=== PATIENT | female | born 2000 | race Caucasian/White ===

== ENCOUNTER 2022-06-12 00:36 | Emergency (ER) | payer OTHER, SELFPAY ==
[2022-06-12 00:44] VITALS: BP 127/84; PULSE 98; RESP 18; TEMP 36.2; O2SAT 98; BMI 32.3
--- NOTE | 2022-06-12 00:50 | ED_ITS ---
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 Her pain is currently a 4-10. Associated symptoms: Deny abdominal pain, chills, dysuria, fever(s), nausea or vomiting Review of Systems Const: Denies: fever(s), chills, body aches or change in appetite Eyes: Denies: blurry vision or eye discomfort ENMT: Denies: throat pain or dental pain Card: Denies: chest pain Resp: Denies: dyspnea GI: Denies: abdominal pain, nausea, vomiting or diarrhea : Denies: dysuria Musc: Reports: back pain Skin/Breast: Denies: rash Neuro: Denies: headache(s) Psych: Denies: depression Joseph/Lymph: Denies: easy bruising All/Imm: Denies: urticaria PFSH ED PFSH: Medical History (Updated 06/12/22 @ 01:03 by Jeffy Carrera MD) No pertinent past medical history Social History (Updated 06/12/22 @ 01:03 by Jeffy Carrera MD) Substance/Drug Use: never Female Reproductive History: Date of last menstrual period: 05/21/22 Physical Exam Const: COMMON NORMALS: no acute distress, patient oriented x3 and healthy appearing HENMT: COMMON NORMALS: normocephalic and atraumatic HEAD & SCALP: normocephalic and atraumatic Eye: COMMON NORMALS: conjunctivae normal CONJUNCTIVA: Yes conjunctivae normal Neck/C-Spine: COMMON NORMALS: full ROM and supple Chest: COMMONS NORMALS: normal inspection of the chest and normal palpation of entire chest wall Resp: COMMON NORMALS: normal respiratory effort, No retractions, No use of accessory muscles and clear to auscultation bilaterally AUSCULTATION: clear to auscultation bilaterally Cardio: COMMON NORMALS: regular rate, regular rhythm and No murmurs present (Cardio) RATE: regular rate RHYTHM: regular rhythm GI: COMMON NORMALS: Normal to inspection, nondistended, normoactive bowel sounds present, Soft to palpation, non-tender and no masses PALPATION: Yes Soft to palpation Back/Pelvis: OTHER: Tenderness along right mid back no midline tenderness Extremity: COMMON NORMALS: normal to inspection and full ROM Neuro: COMMON NORMALS: patient oriented x3, moves all extremities and no focal motor deficits Psych: COMMON NORMALS: mental status grossly normal, Normal thought process present and cooperative THOUGHT PROCESS: Normal thought process present Skin: COMMON NORMALS: no rashes or lesions noted and no wounds GENERAL SKIN EXAM: no rashes or lesions noted Course Vital Signs: Vital signs: Vital Signs Temperature 97.1 F L 06/12/22 00:44 Pulse Rate 98 06/12/22 00:44 Respiratory Rate 18 06/12/22 00:44 Blood Pressure 127/84 06/12/22 00:44 Pulse Oximetry 98 06/12/22 00:44 Oxygen Delivery Me thod 06/12/22 00:44 MDM - Back Pain/Injury Medical Decision Making Patient presents with a thoracic back strain no signs of any major injuries likely muscular in nature will place on Naprosyn Robaxin she is stable for discharge. Discharge Plan Discharge Patient Disposition: Home Clinical Impression: Thoracic back pain Condition: Stable Prescriptions: New methocarbamol 750 mg tablet 750 mg PO Q6H PRN (Reason: spasms) Qty: 20 0RF naproxen [Naprosyn] 500 mg tablet 500 mg PO BID PRN (Reason: pain) Qty: 20 0RF No Action cyclobenzaprine 5 mg tablet 5 mg PO TID PRN (Reason: muscle spasm) Qty: 30 0RF Discharge Orders: Discharge ED (Routine); Ordered 06/12/22 Ordered By: Jeffy Carrera Referrals: [facility], [Primary Care Provider] - Discharge Diet: Advance as tolerated Discharge Activity: Resume usual activity Patient Instructions: Thoracic Back Strain (ED) Coding Level of Care Code ED Wafer Fabrication Technician for Padmini Cantu
[2022-06-12] MEDS: naproxen 500 mg Tablet PO (01:02)
== END 2022-06-12 02:00 | disposition home or self-care (01) ==
PROVIDERS: Emergency Provider Emergency Medicine
DX: M54.6 Pain in thoracic spine (principal)
CPT/HCPCS: 99283

== ENCOUNTER → 2022-09-27 11:37 | Outpatient (BNVA) | payer SELFPAY | PROVIDERS: Visit Provider Emergency Medicine | DX: N39.0 Urinary tract infection, site not specified (principal) | CPT/HCPCS: 81000 ==

== ENCOUNTER → 2023-05-16 15:20 | Outpatient (BNVA) | payer SELFPAY | PROVIDERS: PCP Family Medicine; Referring Provider Family Medicine; Visit Provider Nurse Practitioner Women's Health | DX: Z30.430 Encounter for insertion of intrauterine contraceptive device (principal) | CPT/HCPCS: 81025 ==

== ENCOUNTER → 2023-06-27 14:30 | Outpatient (BNVA) | payer OTHER, SELFPAY | PROVIDERS: PCP Family Medicine; Visit Provider Nurse Practitioner Women's Health | DX: Z12.4 Encounter for screening for malignant neoplasm of cervix (principal); N89.8 Other specified noninflammatory disorders of vagina | CPT/HCPCS: 88175 ==

== ENCOUNTER → 2023-11-09 10:32 | Outpatient (BNVA) | payer OTHER, SELFPAY | PROVIDERS: PCP Family Medicine; Visit Provider Family Medicine | DX: F32.A Depression, unspecified (principal); M54.50 Low back pain, unspecified; G89.29 Other chronic pain; F33.1 Major depressive disorder, recurrent, moderate | CPT/HCPCS: 87491; 87591 ==

== ENCOUNTER 2024-03-20 22:55 | Emergency (ER) | payer OTHER, SELFPAY ==
[2024-03-20 23:06] VITALS: BP 112/77; PULSE 129; RESP 16; TEMP 36.4; O2SAT 100
--- NOTE | 2024-03-21 00:09 | ED_ITS ---
Documented by User: NGA Schaffer 03/21/24 10:51 HPI - Female Genitourinary 2 General: Chief complaint: Vaginal Bleeding Stated complaint: severe bleeding, lightheaded Time Seen by Provider: 03/21/24 00:08 Source: patient Mode of arrival: ambulatory Limitations: no limitations History of Present Illness: Patient is a nice 24-year-old female presents to ED today with complaint of heavy vaginal bleeding. Patient states she has a copper IUD and states ever since its insertion she has had somewhat sporadic and irregular bleeding. She states yesterday she began bleeding and states it significantly worsened overnight and into today. She states she is soaking a pad an hour. She states she is passing clots the size of her palms. Patient states later this evening she began feeling lightheaded and dizzy thus prompting her evaluation to the emergency department. MD elicited complaint: vaginal bleeding Onset (ago): hour(s) Severity: moderate Quality of pain: cramping Vaginal discharge: none Vaginal bleeding: heavy and POC/tissue Exacerbating factors: none Relieving factors: none Associated symptoms: Deny abdominal pain, headache(s), nausea or vaginal discharge Treatment prior to arrival: none Patient : No Review of Systems 2 Const: Denies: fever(s), chills, body aches, fatigue or malaise Card: Denies: chest pain Resp: Denies: dyspnea GI: Denies: abdominal pain, nausea, vomiting or diarrhea : Reports: vaginal bleeding, irregular period, metrorrhagia and pelvic pain (cramping); Denies: flank pain, difficulty voiding, dysuria, urinary frequency, urinary urgency, urinary hesitancy, vaginal odor or vaginal discharge Neuro: Reports: dizziness; Denies: headache(s), numbness in extremities, weakness in extremities or sensory changes PFSH ED 2 PFSH: Medical History No pertinent past medical history neghx:htn,dm,thyroid,dvt/pe PCP: Jose Surgical History No pertinent past surgical history Family History Grandmother Diabetes Hypertension Grandfather CAD (coronary artery disease) Denies family history of Cancer Physical Exam 2 Const: COMMON NORMALS: no acute distress, patient oriented x3, no limitations, alert and well nourished GENERAL APPEARANCE: cooperative O RIENTATION/CONSCIOUSNESS: Yes awake, Yes oriented to person, Yes oriented to place and Yes oriented to time Eye: GENERAL EYE: appearance normal, both eyes and all related structures Resp: COMMON NORMALS: normal respiratory effort and clear to auscultation bilaterally AUSCULTATION: clear to auscultation bilaterally Cardio: COMMON NORMALS: regular rhythm RATE: tachycardic RHYTHM: regular rhythm GI: COMMON NORMALS: Normal to inspection, nondistended, normoactive bowel sounds present, Soft to palpation and non-tender PALPATION: Yes Soft to palpation : COMMON NORMALS: Yes no CVA tenderness BLADDER/KIDNEY EXAM: Yes no CVA tenderness EXTERNAL FEMALE EXAM: Yes normal appearance of the urethra S PECULUM EXAM - VAGINA: Yes other (several clots within vaginal canal ) S PECULUM EXAM - CERVIX: Yes Other cervical findings present (cervix appeared friable; bleeding from cervical os) Back/Pelvis: COMMON NORMALS: no CVA tenderness Extremity: GENERAL: Yes normal exam except as noted Neuro: COMMON NORMALS: patient oriented x3 SENSORIUM/ORIENTATION: Yes alert, Yes oriented to person, Yes oriented to place and Yes oriented to time Course 2 ED course: Care transferred to Dr. Norton at shift change. Plan is for fluids and repeat H/H in a few hours as we have no baseline comparison. Hemoglobin is at 11.2 currently. She is tachycardic. US currently in room with patient. Cervix did appear friable on exam. Did collect chlamydia/gonorrhea/wet prep and those pending as well. Please see Dr. Norton's note for disposition. ES Vital Signs: Vital signs: Vital Signs Temperature 97.6 F 03/20/24 23:06 Pulse Rate 110 H 03/21/24 04:24 Respiratory Rate 15 03/21/24 01:00 Blood Pressure 120/80 03/21/24 04:24 Pulse Oximetry 98 03/21/24 04:24 Oxygen Delivery Me thod Room Air 03/21/24 02:44 MDM - Female Medical Decision Making Patient care transferred over to myself after the level shift ended. We repeated patient's hemoglobin, dropped from 11.2-9.7 for a drop of 1.5 however some of this may be dilutional. Patient is feeling better. Patient also sees the women's health nurse at the women's clinic. Patient will be calling them later today to arrange quick follow-up. It was discussed with the patient that at this point she does not need a transfusion however if she is she keeps losing at this rate within several days she may need 1. It was also discussed she may end up being put on hormonal type control to control the bleeding. Patient understands I contacted patient the following morning for a courtesy check to see how she was feeling. She told me she continued bleeding heavily throughout the evening. She does not feel like her lightheadedness or dizziness is worsening. She did contact the [facility] women's health clinic however they do not have any providers in office today and told her she could not be seen or have labs redrawn until Sunday. I wrote her for an outpatient repeat H&H she was able to come to the hospital and complete this. Her hemoglobin upon discharge yesterday evening/early this morning was 9.7. It is 9.6 on redraw which is reassuring. I did speak to supervisor bonding, Dr. Chen and ran case by him. He recommended placing her on Pirmella oral contraception to help with the bleeding. This was called into [facility] pharmacy. I contacted patient again and told her plan. Dr. Chen will be reaching out to her on Sunday for another recheck and plans on seeing her in the office on Sunday. Strict return to precautions given going into the weekend about worsening bleeding. ES Lab Data 03/21/24 02:55 03/20/24 00:23 Radiology Impressions Transvaginal US 03/21/24 00:41 IMPRESSION: 1. No acute findings. 2. Large left ovarian cystic lesion with internal echogenic material and septations. Interval follow-up with pelvic ultrasound and/or contrast enhanced pelvic MRI should be considered. Laboratory Results WBC 10.78 10^3/uL (3.29-11.43) 03/20/24 00:23 RBC 4.61 10^6/uL (3.85-5.65) 03/20/24 00:23 Hgb 9.70 g/dL (11.27-16.99) L 03/21/24 02:55 Hct 31.3 % (36-47) L 03/21/24 02:55 MCV 78.5 fl (85-98) L 03/20/24 00:23 MCH 24.3 pg (27-33) L 03/20/24 00:23 MCHC 30.9 g/dL (30-55) 03/20/24 00:23 RDW 15.9 % (12.1-15.1) H 03/20/24 00:23 Plt Count 467 10^3/cmm (157-399) H 03/20/24 00:23 MPV 9.1 fL (7.4-10.4) 03/20/24 00:23 Neut % (Auto) 68.0 % 03/20/24 00:23 Lymph % (Auto) 21.2 % 03/20/24 00:23 Coffee % (Auto) 5.6 % 03/20/24 00:23 Eos % (Auto) 4.1 % 03/20/24 00:23 Baso % (Auto) 0.7 % 03/20/24 00:23 Neut # (Auto) 7.34 10^3/uL (1.8-7.7) 03/20/24 00:23 Lymph # (Auto) 2.3 10^3/uL (0.8-4.8) 03/20/24 00:23 Coffee # (Auto) 0.6 10^3/uL (0.2-0.9) 03/20/24 00:23 Eos # (Auto) 0.4 10^3/uL (0.0-0.8) 03/20/24 00:23 Baso # (Auto) 0.1 10^3/uL (0.0-0.1) 03/20/24 00:23 Nucleated RBC % (auto) 0 % 03/20/24 00:23 Nucleated RBCs # 0.0 /100WBC 03/20/24 00:23 PT 14.10 SECONDS (12.1-14.9) 03/21/24 00:50 INR 1.06 (0.8-1.2) 03/21/24 00:50 Sodium 133 mmol/L (136-145) L 03/20/24 00:23 Potassium 4.3 mmol/L (3.5-5.1) 03/20/24 00:23 Chloride 99 mmol/L (98-107) 03/20/24 00:23 Carbon Dioxide 22 mmol/L (22-29) 03/20/24 00:23 Anion Gap 16.3 (5-19) 03/20/24 00:23 BUN 7 mg/dL (6-20) 03/20/24 00:23 Creatinine 0.7 mg/dL (0.5-0.9) 03/20/24 00:23 GFR Calculation 102.0 mL/min (90-130) 03/20/24 00:23 Glucose 106 mg/dL (65-115) 03/20/24 00:23 Calculated Osmolality 274 mOsm/kg (285-295) L 03/20/24 00:23 Calcium 9.1 mg/dL (8.5-10.5) 03/20/24 00:23 Total Bilirubin 0.3 mg/dL (0.15-1.2) 03/20/24 00:23 AST 18 U/L (0-32) 03/20/24 00:23 ALT 15 U/L (0-33) 03/20/24 00:23 Alkaline Phosphatase 72 U/L (35-105) 03/20/24 00:23 Total Protein 7.7 g/dL (6.6-8.7) 03/20/24 00:23 Albumin 3.9 g/dL (3.5-5.2) 03/20/24 00:23 Globulin 3.8 g/dL (1.3-4.6) 03/20/24 00:23 HCG, Qual Negative (Negative) 03/21/24 00:23 Discharge Plan Discharge Patient Disposition: Home Clinical Impression: Vaginal bleeding Condition: Stable Prescriptions: No Action povidone-iodine [Betadine Swabsticks] 10 % swab 1 applic topical ONCE Qty: 1 0RF fexofenadine [Heather Allergy] 180 mg tablet 180 mg PO DAILY ParaGard T 380A 380 square mm intrauterine device intrauterine montelukast [Singulair] 10 mg tablet 10 mg PO DAILY Qty: 90 1RF citalopram 10 mg tablet See Rx Instructions .ROUTE .COMPLEX Qty: 90 1RF Dose Instruction: TAKE 1 TABLET BY MOUTH EVERY DAY Rx Instructions: TAKE 1 TABLET BY MOUTH EVERY DAY tizanidine 4 mg tablet 4 mg PO .qhs PRN (Reason: muscle spasticity) Qty: 30 1RF doxycycline hyclate 100 mg tablet 100 mg PO BID 7 Days Qty: 14 0RF prednisone 20 mg tablet 20 mg PO BID 5 Days Qty: 10 0RF albuterol sulfate 90 mcg/actuation HFA aerosol inhaler 2 puff inhalation QID PRN (Reason: shortness of breath or wheezing) Qty: 8.5 2RF Discharge Orders: Discharge ED (Routine); Ordered 03/21/24 Ordered By: Andrea Norton Referrals: Shilpa Garcia DO [Primary Care Provider] - 1 week Patient Instructions: Abnormal (Dysfunctional) Uterine Bleeding (ED) Activity Restrictions/Additional Instructions: Your evaluation in ER showed your initial hemoglobin was proximal 11.2, after 1 L saline and approximately 5 hours in the ER your hemoglobin did drop to 9.7, part of this will be dilutional anemia secondary to the fluid part of this will be actual blood loss. Please call the women's health clinic later on this morning to arrange follow-up. They may treat you with abdominal type medication to Control your bleeding. At this time you do not need a transfusion however if you keep bleeding this heavy within a very short time you may. If you have worsening lightheaded dizziness fatigue felt you are in a pass out and a fast heart rate please feel free to return to the ER for further evaluation. Coding Level of Care Code ED Child Care Group Leader for Chg Fwd Documented by User: Andrea Norton DO 03/21/24 05:49 HPI - Female Genitourinary 2 General: Chief complaint: Vaginal Bleeding Stated complaint: severe bleeding, lightheaded Time Seen by Provider: 03/21/24 00:08 [facility] ED 2 PFSH: Medical History No pertinent past medical history neghx:htn,dm,thyroid,dvt/pe PCP: Jose Surgical History No pertinent past surgical history Family History Grandmother Diabetes Hypertension Grandfather CAD (coronary artery disease) Denies family history of Cancer Course 2 Vital Signs: Vital signs: Vital Signs Temperature 97.6 F 03/20/24 23:06 Pulse Rate 110 H 03/21/24 04:24 Respiratory Rate 15 03/21/24 01:00 Blood Pressure 120/80 03/21/24 04:24 Pulse Oximetry 98 03/21/24 04:24 Oxygen Delivery Me thod Room Air 03/21/24 02:44 MDM - Female Medical Decision Making Patient care transferred over to myself after the level shift ended. We repeated patient's hemoglobin, dropped from 11.2-9.7 for a drop of 1.5 however some of this may be dilutional. Patient is feeling better. Patient also sees the women's health nurse at the women's clinic. Patient will be calling them later today to arrange quick follow-up. It was discussed with the patient that at this point she does not need a transfusion however if she is she keeps losing at this rate within several days she may need 1. It was also discussed she may end up being put on hormonal type control to control the bleeding. Patient understands Lab Data 03/21/24 02:55 03/20/24 00:23 Radiology Impressions Transvaginal US 03/21/24 00:41 IMPRESSION: 1. No acute findings. 2. Large left ovarian cystic lesion with internal echogenic material and septations. Interval follow-up with pelvic ultrasound and/or contrast enhanced pelvic MRI should be considered. Laboratory Results WBC 10.78 10^3/uL (3.29-11.43) 03/20/24 00:23 RBC 4.61 10^6/uL (3.85-5.65) 03/20/24 00:23 Hgb 9.70 g/dL (11.27-16.99) L 03/21/24 02:55 Hct 31.3 % (36-47) L 03/21/24 02:55 MCV 78.5 fl (85-98) L 03/20/24 00:23 MCH 24.3 pg (27-33) L 03/20/24 00:23 MCHC 30.9 g/dL (30-55) 03/20/24 00:23 RDW 15.9 % (12.1-15.1) H 03/20/24 00:23 Plt Count 467 10^3/cmm (157-399) H 03/20/24 00:23 MPV 9.1 fL (7.4-10.4) 03/20/24 00:23 Neut % (Auto) 68.0 % 03/20/24 00:23 Lymph % (Auto) 21.2 % 03/20/24 00:23 Coffee % (Auto) 5.6 % 03/20/24 00:23 Eos % (Auto) 4.1 % 03/20/24 00:23 Baso % (Auto) 0.7 % 03/20/24 00:23 Neut # (Auto) 7.34 10^3/uL (1.8-7.7) 03/20/24 00:23 Lymph # (Auto) 2.3 10^3/uL (0.8-4.8) 03/20/24 00:23 Coffee # (Auto) 0.6 10^3/uL (0.2-0.9) 03/20/24 00:23 Eos # (Auto) 0.4 10^3/uL (0.0-0.8) 03/20/24 00:23 Baso # (Auto) 0.1 10^3/uL (0.0-0.1) 03/20/24 00:23 Nucleated RBC % (auto) 0 % 03/20/24 00:23 Nucleated RBCs # 0.0 /100WBC 03/20/24 00:23 PT 14.10 SECONDS (12.1-14.9) 03/21/24 00:50 INR 1.06 (0.8-1.2) 03/21/24 00:50 Sodium 133 mmol/L (136-145) L 03/20/24 00:23 Potassium 4.3 mmol/L (3.5-5.1) 03/20/24 00:23 Chloride 99 mmol/L (98-107) 03/20/24 00:23 Carbon Dioxide 22 mmol/L (22-29) 03/20/24 00:23 Anion Gap 16.3 (5-19) 03/20/24 00:23 BUN 7 mg/dL (6-20) 03/20/24 00:23 Creatinine 0.7 mg/dL (0.5-0.9) 03/20/24 00:23 GFR Calculation 102.0 mL/min (90-130) 03/20/24 00:23 Glucose 106 mg/dL (65-115) 03/20/24 00:23 Calculated Osmolality 274 mOsm/kg (285-295) L 03/20/24 00:23 Calcium 9.1 mg/dL (8.5-10.5) 03/20/24 00:23 Total Bilirubin 0.3 mg/dL (0.15-1.2) 03/20/24 00:23 AST 18 U/L (0-32) 03/20/24 00:23 ALT 15 U/L (0-33) 03/20/24 00:23 Alkaline Phosphatase 72 U/L (35-105) 03/20/24 00:23 Total Protein 7.7 g/dL (6.6-8.7) 03/20/24 00:23 Albumin 3.9 g/dL (3.5-5.2) 03/20/24 00:23 Globulin 3.8 g/dL (1.3-4.6) 03/20/24 00:23 HCG, Qual Negative (Negative) 03/21/24 00:23 All radiology interpretation(s) finalized by discharge Discharge Plan Discharge Patient Disposition: Home Clinical Impression: Vaginal bleeding Condition: Stable Prescriptions: No Action povidone-iodine [Betadine Swabsticks] 10 % swab 1 applic topical ONCE Qty: 1 0RF fexofenadine [Heather Allergy] 180 mg tablet 180 mg PO DAILY ParaGard T 380A 380 square mm intrauterine device intrauterine montelukast [Singulair] 10 mg tablet 10 mg PO DAILY Qty: 90 1RF citalopram 10 mg tablet See Rx Instructions .ROUTE .COMPLEX Qty: 90 1RF Dose Instruction: TAKE 1 TABLET BY MOUTH EVERY DAY Rx Instructions: TAKE 1 TABLET BY MOUTH EVERY DAY tizanidine 4 mg tablet 4 mg PO .qhs PRN (Reason: muscle spasticity) Qty: 30 1RF doxycycline hyclate 100 mg tablet 100 mg PO BID 7 Days Qty: 14 0RF prednisone 20 mg tablet 20 mg PO BID 5 Days Qty: 10 0RF albuterol sulfate 90 mcg/actuation HFA aerosol inhaler 2 puff inhalation QID PRN (Reason: shortness of breath or wheezing) Qty: 8.5 2RF Discharge Orders: Discharge ED (Routine); Ordered 03/21/24 Ordered By: Andrea Norton Referrals: Shilpa Garcia DO [Primary Care Provider] - 1 week Patient Instructions: Abnormal (Dysfunctional) Uterine Bleeding (ED) Activity Restrictions/Additional Instructions: Your evaluation in ER showed your initial hemoglobin was proximal 11.2, after 1 L saline and approximately 5 hours in the ER your hemoglobin did drop to 9.7, part of this will be dilutional anemia secondary to the fluid part of this will be actual blood loss. Please call the women's health clinic later on this morning to arrange follow-up. They may treat you with abdominal type medication to Control your bleeding. At this time you do not need a transfusion however if you keep bleeding this heavy within a very short time you may. If you have worsening lightheaded dizziness fatigue felt you are in a pass out and a fast heart rate please feel free to return to the ER for further evaluation. Coding Level of Care Code ED Child Care Group Leader for Padmini Cantu
[2024-03-21 00:30] LABS: Basophils # 0.1 10^3/uL (0.0-0.1); Basophils % 0.7 %; Eosinophils # 0.4 10^3/uL (0.0-0.8); Eosinophils % 4.1 %; Hematocrit 36.2 % (36-47); Lymphocytes # 2.3 10^3/uL (0.8-4.8); Lymphocytes % 21.2 %; Mean Corpuscular HGB Conc 30.9 g/dL (30-55); Mean Corpuscular Hemoglobin 24.3 pg (27-33); Mean Corpuscular Volume 78.5 fl (85-98); Mean Platelet Volume 9.1 fL (7.4-10.4); Monocytes # 0.6 10^3/uL (0.2-0.9); Monocytes % 5.6 %; Neutrophils # 7.34 10^3/uL (1.8-7.7); Nucleated Red Blood Cells % 0 %; Platelet Count 467 10^3/cmm (157-399); Red Blood Count 4.61 10^6/uL (3.85-5.65); Red Cell Distribution Width 15.9 % (12.1-15.1); White Blood Count 10.78 10^3/uL (3.29-11.43)
[2024-03-21 00:37] LABS: HCG, Serum Qual Negative (Negative)
--- NOTE | 2024-03-21 00:41 | USR_ITS ---
PROCEDURE INFORMATION: Exam: US Pelvis, Transvaginal, Non-Obstetric Exam date and time: 03/21/2024 1:05 AM Age: 24 years old Clinical indication: Menstruation abnormalities; Excessive menstruation; With regular cycle; Additional info: Heavy vaginal bleeding TECHNIQUE: Imaging protocol: Real-time transvaginal pelvic (non-obstetric) ultrasound with image documentation. Transvaginal imaging was used for better evaluation of the endometrium, adnexa, and/or cervix. COMPARISON: No relevant prior studies available. FINDINGS: Uterus: Uterus is normal. Endometrial stripe is normal, measuring 1.1 cm in thickness. An intrauterine device is in place. Right ovary/adnexa: Normal. No mass. Normal ovarian blood flow on color Doppler. 1.7 cm cyst noted. Left ovary/adnexa: Normal. No mass. Normal ovarian blood flow on color Doppler. Large cystic lesion with internal echogenic material and septations noted, measuring 7 x 8 cm. Urinary bladder: Urinary bladder is limited. Intraperitoneal space: No free fluid. US/US transvaginal [id number] IMPRESSION: 1. No acute findings. 2. Large left ovarian cystic lesion with internal echogenic material and septations. Interval follow-up with pelvic ultrasound and/or contrast enhanced pelvic MRI should be considered.
[2024-03-21 00:45] LABS: Alanine Aminotransferase 15 U/L (0-33); Albumin Level 3.9 g/dL (3.5-5.2); Alkaline Phosphatase 72 U/L (35-105); Blood Urea Nitrogen 7 mg/dL (6-20); Calcium 9.1 mg/dL (8.5-10.5); Carbon Dioxide 22 mmol/L (22-29); Chloride 99 mmol/L (98-107); Creatinine Clr Calc Pharmacy 145.3682; Globulin 3.8 g/dL (1.3-4.6); Glucose 106 mg/dL (65-115); Osmolality Calculated 274 mOsm/kg (285-295); Sodium 133 mmol/L (136-145); Total Bilirubin 0.3 mg/dL (0.15-1.2); Total Protein 7.7 g/dL (6.6-8.7)
[2024-03-21 00:46] LABS: Anion Gap 16.3 (5-19); Aspartate Amino Transferase 18 U/L (0-32); Potassium 4.3 mmol/L (3.5-5.1)
[2024-03-21 00:50] VITALS: BP 120/82; BP 123/96; BP 124/81; PULSE 121; PULSE 123; PULSE 140
[2024-03-21 01:00] VITALS: BP 124/81; PULSE 132; RESP 15; O2SAT 95
[2024-03-21] MEDS: sodium chloride 0.9% 1,000 ML 999 ML IV (01:02)
[2024-03-21 01:14] LABS: INR 1.06 (0.8-1.2)
[2024-03-21 02:44] VITALS: PULSE 110; O2SAT 96
[2024-03-21 02:58] LABS: Hematocrit 31.3 % (36-47)
[2024-03-21 04:24] VITALS: BP 120/80; PULSE 110; O2SAT 98
[2024-03-22 13:09] LABS: Trichomonas Vaginalis RNA NOT DETECTED (NOT DETECTED)
[2024-03-22 14:20] LABS: Chlamydia Trachomatis RNA TMA NOT DETECTED (NOT DETECTED); Neisseria Gonorrhoeae RNA, TMA NOT DETECTED (NOT DETECTED)
== END 2024-03-21 04:25 | disposition home or self-care (01) ==
PROVIDERS: Emergency Medicine; Emergency Provider Physician Assistant; PCP Family Medicine
DX: N93.9 Abnormal uterine and vaginal bleeding, unspecified (principal); Z79.899 Other long term (current) drug therapy; Z97.5 Presence of (intrauterine) contraceptive device
CPT/HCPCS: 76830; 80053; 84703; 85014; 85018; 85025; 85610; 87210; 87491; 87591; 96360; 96361; 99285; J7030

== ENCOUNTER 2024-03-21 10:10 | Outpatient (CLI) | payer OTHER, SELFPAY ==
[2024-03-21 10:30] LABS: Hematocrit 30.9 % (36-47)
== END 2024-03-21 10:11 | disposition home or self-care (01) ==
PROVIDERS: PCP Family Medicine; Visit Provider Physician Assistant
DX: N93.9 Abnormal uterine and vaginal bleeding, unspecified (principal)
CPT/HCPCS: 36415; 85014; 85018

== ENCOUNTER 2024-03-22 22:57 | Emergency (ER) | payer OTHER, SELFPAY ==
[2024-03-22 23:02] VITALS: BP 109/78; PULSE 129; RESP 17; TEMP 36.7; O2SAT 98; BMI 34.0
[2024-03-22 23:44] LABS: Basophils # 0.1 10^3/uL (0.0-0.1); Basophils % 0.5 %; Eosinophils # 0.6 10^3/uL (0.0-0.8); Eosinophils % 5.3 %; Hematocrit 23.5 % (36-47); Lymphocytes # 1.9 10^3/uL (0.8-4.8); Mean Corpuscular HGB Conc 31.1 g/dL (30-55); Mean Corpuscular Hemoglobin 24.6 pg (27-33); Mean Corpuscular Volume 79.1 fl (85-98); Mean Platelet Volume 9.3 fL (7.4-10.4); Monocytes # 0.6 10^3/uL (0.2-0.9); Monocytes % 4.9 %; Neutrophils # 8.53 10^3/uL (1.8-7.7); Neutrophils % 72.9 %; Nucleated Red Blood Cells % 0 %; Platelet Count 431 10^3/cmm (157-399); Red Blood Count 2.97 10^6/uL (3.85-5.65); Red Cell Distribution Width 15.9 % (12.1-15.1)
[2024-03-22 23:54] VITALS: BP 132/76; PULSE 116; RESP 18; O2SAT 99
[2024-03-23] VITALS (14 sets, daily range): BP systolic 114–154; BP diastolic 63–99; PULSE 66–119; RESP 14–18; TEMP 36.4–36.9; O2SAT 98–100
[2024-03-23 00:02] LABS: HCG, Serum Qual Negative (Negative)
[2024-03-23 00:06] LABS: Alanine Aminotransferase 9 U/L (0-33); Albumin Level 3.5 g/dL (3.5-5.2); Alkaline Phosphatase 62 U/L (35-105); Anion Gap 12.1 (5-19); Aspartate Amino Transferase 11 U/L (0-32); Blood Urea Nitrogen 11 mg/dL (6-20); Calcium 7.9 mg/dL (8.5-10.5); Carbon Dioxide 25 mmol/L (22-29); Chloride 105 mmol/L (98-107); Creatinine Clr Calc Pharmacy 148.0447; Glucose 124 mg/dL (65-115); Osmolality Calculated 287 mOsm/kg (285-295); Potassium 4.1 mmol/L (3.5-5.1); Sodium 138 mmol/L (136-145); Total Bilirubin 0.2 mg/dL (0.15-1.2); Total Protein 6.5 g/dL (6.6-8.7)
[2024-03-23] MEDS: sodium chloride 0.9% 1,000 ML 999 ML IV (00:06)
[2024-03-23] MEDS: acetaminophen 325 mg Tablet 650 MG PO (00:55)
[2024-03-23] MEDS: diphenhydrAMINE 50 mg/mL SDV 1mL 25 MG IVP (00:56)
[2024-03-23] MEDS: sodium chloride 0.9% 100 mL Bag 50 ML IV ×2 (01:15→03:48)
--- NOTE | 2024-03-23 01:20 | PM.OBGYCN ---
Providers/Reason for Consult Consulting Physican/Specialty*: Jamil Chen MD, ob-in flight crew member Reason for Consult*: heavy bleeding with paragard IUD Primary CLUB ROOM ATTENDANT: Shilpa Olguin NP Primary Care Provider: Shilpa Garcia DO CLUB ROOM ATTENDANT Consult HPI History of Present Illness Criss Ann is a 24 year old female s/p paragard IUD placement May 16, 2024 had regular periods after placement then on March 20, 2024, began to have very heavy bleeding with large clots was seen in ER March 20, 2024 had negative test normal pelvic sono with IUD in position Hgb was 11.2 Patient was seen again on March 21, 2024 with continued very heavy bleeding Hgb on March 21 was 9.6 Patient was started on Pirmella Patient took one dose of Pirmella Re-presents to ER today, March 22, with continued bleeding, large clots, dizziness, and Weakness Hgb today is 7.3 Medications/Allergies Home Medications Medication Instructions Recorded Confirmed Last Taken Type montelukast 10 mg tablet 10 mg PO DAILY #90 tabs 04/20/23 02/24/24 Unknown Rx (Singulair) fexofenadine 180 mg tablet 180 mg PO DAILY 05/16/23 02/24/24 Unknown History (Heather Allergy) copper 380 square mm intrauterine intrauterine 06/27/23 02/24/24 Unknown History device (ParaGard T 380A) citalopram 10 mg tablet See Rx Instructions .Route 11/09/23 02/24/24 Unknown Rx .COMPLEX #90 tabs tizanidine 4 mg tablet 4 mg PO .qhs PRN muscle spasticity 11/09/23 02/24/24 Unknown Rx #30 tabs albuterol sulfate 90 mcg/actuation 2 puff inhalation QID PRN 02/24/24 02/24/24 Unknown Rx aerosol inhaler shortness of breath or wheezing #8.5 grams doxycycline hyclate 100 mg tablet 100 mg PO BID 7 days #14 tabs 02/24/24 02/24/24 Unknown Rx prednisone 20 mg tablet 20 mg PO BID 5 days #10 tabs 02/24/24 02/24/24 Unknown Rx Allergies Allergy/AdvReac Type Severity Reaction Status Date / Time No Known Allergies Allergy Verified 03/22/24 23:07 PFS CLUB ROOM ATTENDANT PFSH: Medical History No pertinent past medical history neghx:htn,dm,thyroid,dvt/pe PCP: Jose Surgical History No pertinent past surgical history Family History Grandmother Diabetes Hypertension Grandfather CAD (coronary artery disease) Denies family history of Cancer Vitals/I&O/Wt Last Vital Signs Temp 98.5 F 03/23/24 02:39 Pulse 116 H 03/23/24 02:39 Resp 16 03/23/24 02:39 BP 154/98 03/23/24 02:39 Pulse Ox 100 03/23/24 02:39 O2 Del Method Room Air 03/22/24 23:02 03/22/24 03/22/24 03/23/24 14:59 22:59 06:59 Intake Total 1250 / 1250 Balance 1250 / 1250 Weight last 48 hrs Weight 217 lb Physical Exam Narrative: I reviewed patient?s history, chart, and lab results Discussed with patient my recommendation to remove the paragard IUD Patient understands and wants to proceed with IUD removal Exam: Vulva: normal Vagina: + blood in vault Cervix: IUD string in good position IUD was removed complete and intact, discarded Data 03/22/24 23:20 03/22/24 23:20 A&P Assessment and plan (1) IUD surveillance: Heavy uterine bleeding, likely secondary to presence of paragard IUD Paragard IUD removed today Plan continue Pirmella as previously instructed for remainder of pack Plan followup in in flight crew member clinic Sunday or Sunday (2) Vaginal bleeding: (3) Anemia: Plan for ER physician to proceed with PRBC transfusion Consult Attestations Medical Necessity Statement: patient with paragard IUD, heavy vaginal bleeding, symptomatic anemia Coding Level of Care Code Acute Code for Chg Fwd Diagnoses IUD surveillance Z30.431 Vaginal bleeding N93.9 Anemia D64.9 Time Spent (min) 60
--- NOTE | 2024-03-23 01:23 | W.ED.DIZZY ---
HPI - Dizziness General: Chief Complaint: Dizziness Stated Complaint: Dizzy Time Seen by Provider: 03/22/24 23:18 History of Present Illness: HPI Narrative: 24-year-old female who has been battling brisk vaginal bleeding for the past several days. She was seen 2 days ago, and had a hemoglobin below 10. She has a copper IUD. This was placed in June, and she had not been having problems with it prior. She does not believe she is . Ultrasound did not reveal a specific cause Associated symptoms: Reports nausea; Denies chest pain, chills, palpitations or vomiting Review of Systems Const: Denies: fever(s) or chills ENMT: Denies: throat pain Card: Reports: pre-syncope; Denies: chest pain or palpitations Resp: Reports: dyspnea; Denies: productive cough or non-productive cough GI: Reports: abdominal pain and nausea; Denies: vomiting Musc: Denies: back pain Skin/Breast: Denies: rash Neuro: Reports: dizziness PFS ED PFSH: Medical History No pertinent past medical history neghx:htn,dm,thyroid,dvt/pe PCP: Jose Surgical History No pertinent past surgical history Family History Grandmother Diabetes Hypertension Grandfather CAD (coronary artery disease) Denies family history of Cancer Physical Exam Const: COMMON NORMALS: no acute distress HENMT: COMMON NORMALS: normocephalic, atraumatic and Normal external nose present HEAD & SCALP: normocephalic and atraumatic NOSE: Normal external nose present Eye: COMMON NORMALS: Equal, round and reactive pupils present and EOMs intact bilaterally PUPIL: Yes Equal, round and reactive pupils present Chest: CHEST: Yes Symmetrical chest wall rise Resp: COMMON NORMALS: normal respiratory effort, No use of accessory muscles and clear to auscultation bilaterally AUSCULTATION: clear to auscultation bilaterally Cardio: COMMON NORMALS: regular rhythm RATE: tachycardic RHYTHM: regular rhythm GI: COMMON NORMALS: Normal to inspection, nondistended, normoactive bowel sounds present Extremity: COMMON NORMALS: capillary refill normal Neuro: JOSE COMA SCALE: document GCS findings [place] coma scale eye opening: Spontaneous [place] coma scale verbal response: Orientated [place] coma scale motor response: Obey commands Jose coma scale total score: 15 Course Vital Signs: Vital signs: Vital Signs Temperature 98.2 F 03/23/24 02:45 Pulse Rate 113 H 03/23/24 03:15 Respiratory Rate 16 03/23/24 03:15 Blood Pressure 134/94 03/23/24 03:15 Pulse Oximetry 99 03/23/24 03:15 Oxygen Delivery Me thod Room Air 03/22/24 23:02 MDM - Dizziness Medical Decision Making Patient is normotensive. She is tachycardic though. She is definitely symptomatic. Her hemoglobin has gone from 9.7-7.3. Other laboratory is not remarkable. This is despite being on hormone medication to stop the bleeding. I spoke with gynecology. He came to evaluate the patient. Determination is that the IUD is likely the cause of the bleeding. This was removed by him in the ER. She is transfused 2 units of packed cells. His recommendations are discharged from the emergency room with close outpatient follow-up after transfusion. He will see her on Sunday or Sunday in clinic. Patient tolerated the transfusion well. She will be allowed discharge. Lab Data 03/22/24 23:20 03/22/24 23:20 Laboratory Results WBC 11.70 10^3/uL (3.29-11.43) H 03/22/24 23:20 RBC 2.97 10^6/uL (3.85-5.65) L 03/22/24 23:20 Hgb 7.30 g/dL (11.27-16.99) L 03/22/24 23:20 Hct 23.5 % (36-47) L 03/22/24 23:20 MCV 79.1 fl (85-98) L 03/22/24 23:20 MCH 24.6 pg (27-33) L 03/22/24 23:20 MCHC 31.1 g/dL (30-55) 03/22/24 23:20 RDW 15.9 % (12.1-15.1) H 03/22/24 23:20 Plt Count 431 10^3/cmm (157-399) H 03/22/24 23:20 MPV 9.3 fL (7.4-10.4) 03/22/24 23:20 Neut % (Auto) 72.9 % 03/22/24 23:20 Lymph % (Auto) 16.0 % 03/22/24 23:20 [place] % (Auto) 4.9 % 03/22/24 23:20 Eos % (Auto) 5.3 % 03/22/24 23:20 Baso % (Auto) 0.5 % 03/22/24 23:20 Neut # (Auto) 8.53 10^3/uL (1.8-7.7) H 03/22/24 23:20 Lymph # (Auto) 1.9 10^3/uL (0.8-4.8) 03/22/24 23:20 [place] # (Auto) 0.6 10^3/uL (0.2-0.9) 03/22/24 23:20 Eos # (Auto) 0.6 10^3/uL (0.0-0.8) 03/22/24 23:20 Baso # (Auto) 0.1 10^3/uL (0.0-0.1) 03/22/24 23:20 Nucleated RBC % (auto) 0 % 03/22/24 23:20 Nucleated RBCs # 0.0 /100WBC 03/22/24 23:20 Sodium 138 mmol/L (136-145) 03/22/24 23:20 Potassium 4.1 mmol/L (3.5-5.1) 03/22/24 23:20 Chloride 105 mmol/L (98-107) 03/22/24 23:20 Carbon Dioxide 25 mmol/L (22-29) 03/22/24 23:20 Anion Gap 12.1 (5-19) 03/22/24 23:20 BUN 11 mg/dL (6-20) 03/22/24 23:20 Creatinine 0.7 mg/dL (0.5-0.9) 03/22/24 23:20 GFR Calculation 102.0 mL/min (90-130) 03/22/24 23:20 Glucose 124 mg/dL (65-115) H 03/22/24 23:20 Calculated Osmolality 287 mOsm/kg (285-295) 03/22/24 23:20 Calcium 7.9 mg/dL (8.5-10.5) L 03/22/24 23:20 Total Bilirubin 0.2 mg/dL (0.15-1.2) 03/22/24 23:20 AST 11 U/L (0-32) 03/22/24 23:20 ALT 9 U/L (0-33) 03/22/24 23:20 Alkaline Phosphatase 62 U/L (35-105) 03/22/24 23:20 Total Protein 6.5 g/dL (6.6-8.7) L 03/22/24 23:20 Albumin 3.5 g/dL (3.5-5.2) 03/22/24 23:20 Globulin 3.0 g/dL (1.3-4.6) 03/22/24 23:20 HCG, Qual Negative (Negative) 03/22/24 23:20 Blood Type O Negative 03/22/24 23:20 Rho(D) Type Rh negative 03/22/24 23:20 Antibody Screen Negative 03/22/24 23:20 Crossmatch See Detail 03/22/24 23:20 No radiology studies performed this visit Discharge Plan Discharge Patient Disposition: Home Clinical Impression: Vaginal bleeding Condition: Stable Prescriptions: No Action povidone-iodine [Betadine Swabsticks] 10 % swab 1 applic topical ONCE Qty: 1 0RF fexofenadine [Heather Allergy] 180 mg tablet 180 mg PO DAILY ParaGard T 380A 380 square mm intrauterine device intrauterine montelukast [Singulair] 10 mg tablet 10 mg PO DAILY Qty: 90 1RF citalopram 10 mg tablet See Rx Instructions .ROUTE .COMPLEX Qty: 90 1RF Dose Instruction: TAKE 1 TABLET BY MOUTH EVERY DAY Rx Instructions: TAKE 1 TABLET BY MOUTH EVERY DAY tizanidine 4 mg tablet 4 mg PO .qhs PRN (Reason: muscle spasticity) Qty: 30 1RF doxycycline hyclate 100 mg tablet 100 mg PO BID 7 Days Qty: 14 0RF prednisone 20 mg tablet 20 mg PO BID 5 Days Qty: 10 0RF albuterol sulfate 90 mcg/actuation HFA aerosol inhaler 2 puff inhalation QID PRN (Reason: shortness of breath or wheezing) Qty: 8.5 2RF Discharge Orders: Discharge ED (Routine); Ordered 03/23/24 Ordered By: Koko Blount Referrals: Shilpa Garcia DO [Primary Care Provider] - 4-7 days Jamil Chen MD [Physician] - 1-3 days Patient Instructions: Opioid Safety, Pain Management Activity Restrictions/Additional Instructions: Pelvic rest. No heavy lifting. Return for continued or worsening vaginal bleeding despite treatment here. Return also for fever, worsening pain, any other concerns. Call the women's health clinic on Sunday for follow-up with the automobile mechanic supervisor you saw kp in the emergency department. Stand Alone Forms: Work/School Release Coding Level of Care Code ED Telephone Ad Taker for Padmini Cantu
== END 2024-03-23 03:49 | disposition home or self-care (01) ==
PROVIDERS: Nurse Practitioner Family; Emergency Provider Emergency Medicine; PCP Family Medicine
DX: N93.9 Abnormal uterine and vaginal bleeding, unspecified (principal); R00.0 Tachycardia, unspecified; Z79.899 Other long term (current) drug therapy; Z97.5 Presence of (intrauterine) contraceptive device
CPT/HCPCS: 36430; 80053; 84703; 85025; 86850; 86900; 86920; 96361; 96374; 99284; J1200; J7030; P9016; P9040

== ENCOUNTER → 2024-04-03 14:49 | Outpatient (BNVA) | payer OTHER, SELFPAY | PROVIDERS: PCP Family Medicine; Visit Provider Nurse Practitioner Women's Health | DX: N93.9 Abnormal uterine and vaginal bleeding, unspecified (principal); R87.810 Cervical high risk human papillomavirus (HPV) DNA test positive | CPT/HCPCS: 88175 ==

== ENCOUNTER 2024-04-04 07:37 | Outpatient (CLI) | payer OTHER, SELFPAY ==
[2024-04-04 08:03] LABS: Basophils # 0.1 10^3/uL (0.0-0.1); Basophils % 0.8 %; Eosinophils # 0.7 10^3/uL (0.0-0.8); Eosinophils % 7.8 %; Lymphocytes # 2.6 10^3/uL (0.8-4.8); Lymphocytes % 30.1 %; Mean Corpuscular Hemoglobin 25.6 pg (27-33); Mean Corpuscular Volume 82.6 fl (85-98); Mean Platelet Volume 8.7 fL (7.4-10.4); Monocytes # 0.6 10^3/uL (0.2-0.9); Monocytes % 7.3 %; Neutrophils # 4.61 10^3/uL (1.8-7.7); Neutrophils % 53.5 %; Nucleated Red Blood Cells % 0 %; Platelet Count 440 10^3/cmm (157-399); Red Blood Count 3.63 10^6/uL (3.85-5.65); Red Cell Distribution Width 16.1 % (12.1-15.1); White Blood Count 8.61 10^3/uL (3.29-11.43)
[2024-04-04 08:47] LABS: Free T4 Free Thyroxine 1.24 ng/dL (0.82-1.77); Thyroid Stimulating Hormone 4.01 uIU/mL (0.27-4.20)
== END 2024-04-04 07:38 | disposition home or self-care (01) ==
PROVIDERS: Nurse Practitioner Women's Health; PCP Family Medicine; Visit Provider Family Medicine
DX: N93.9 Abnormal uterine and vaginal bleeding, unspecified (principal)
CPT/HCPCS: 36415; 84439; 84443; 85025; 85240; 85245; 85246

== ENCOUNTER → 2024-04-28 15:33 | Outpatient (BNVA) | payer OTHER, SELFPAY | PROVIDERS: PCP Family Medicine; Visit Provider Nurse Practitioner Women's Health | DX: N93.9 Abnormal uterine and vaginal bleeding, unspecified (principal); N83.202 Unspecified ovarian cyst, left side; N83.291 Other ovarian cyst, right side | CPT/HCPCS: 76830 ==

== ENCOUNTER → 2024-05-07 08:32 | Outpatient (BNVA) | payer OTHER, SELFPAY | PROVIDERS: PCP Family Medicine; Visit Provider Obstetrics & Gynecology | DX: R87.619 Unspecified abnormal cytological findings in specimens from cervix uteri (principal) | CPT/HCPCS: 88305 ==

== ENCOUNTER → 2024-05-08 14:33 | Outpatient (BNVA) | payer OTHER, SELFPAY | PROVIDERS: PCP Family Medicine; Visit Provider Family Medicine | DX: N93.9 Abnormal uterine and vaginal bleeding, unspecified (principal) | CPT/HCPCS: 80053; 83036; 85025 ==

== ENCOUNTER → 2024-05-13 05:09 | Outpatient (BNVA) | payer OTHER, SELFPAY | PROVIDERS: PCP Family Medicine; Visit Provider Family Medicine | DX: N93.9 Abnormal uterine and vaginal bleeding, unspecified (principal) | CPT/HCPCS: 85240; 85245; 85246 ==

== ENCOUNTER 2024-05-21 10:22 | Outpatient (CLI) | payer OTHER, SELFPAY ==
[2024-05-21 11:22] LABS: Platelet Count 398 10^3/cmm (157-399)
[2024-05-21 11:25] LABS: INR 1.06 (0.8-1.2)
[2024-05-21 11:27] LABS: Fibrinogen 440 mg/dL (174-498); Partial Thromboplastin Time 36.8 SECONDS (23.9-36.7)
[2024-05-21 11:35] LABS: Ferritin 8 ng/mL (15-150); Iron 24 ug/dL (37-145); Percent Saturation 8.1 % (20-50); Total Iron Binding Capacity 295 mcg/dl; Unsaturated Iron Binding 271 ug/dL (112-347)
== END 2024-05-21 10:23 | disposition home or self-care (01) ==
LOC: LAB 10:23
PROVIDERS: PCP Family Medicine; Visit Provider Family Medicine
DX: D64.9 Anemia, unspecified (principal); N93.9 Abnormal uterine and vaginal bleeding, unspecified
CPT/HCPCS: 36415; 82728; 83540; 83550; 85049; 85384; 85610; 85730

== ENCOUNTER 2024-06-16 00:15 | Emergency (ER) | payer OTHER, SELFPAY ==
[2024-06-16] VITALS (10 sets, daily range): BP systolic 128–145; BP diastolic 73–93; PULSE 91–129; RESP 12–18; TEMP 36.8; O2SAT 97–99; BMI 32.5
--- NOTE | 2024-06-16 00:25 | XRR_ITS ---
PROCEDURE INFORMATION: Exam: XR Chest Exam date and time: 06/16/2024 1:06 AM Age: 24 years old Clinical indication: Pain; Chest pressure; Additional info: Cp TECHNIQUE: Imaging protocol: Radiologic exam of the chest. Views: 1 view. COMPARISON: No relevant prior studies available. FINDINGS: Lungs: Unremarkable. No consolidation. Pleural spaces: Unremarkable. No pleural effusion. No pneumothorax. Heart/Mediastinum: Unremarkable. No cardiomegaly. Bones/joints: Unremarkable. XR/XR chest 1V portable [id number] IMPRESSION: No acute findings.
--- NOTE | 2024-06-16 00:26 | ECG_ITS ---
[facility] Test Date: 2024-06-16 Pat Name: Criss Ann Department: Room: Gender: Female Steward/Stewardess Tourist Class: : 2000 Requested By: Koko Anaya Order Number: [id number] Damon MD: Mehul Kinney M.D. Measurements Intervals [place] Rate: 129 P: 78 LA: 158 QRS: 76 QRSD: 70 T: 48 QT: 302 QTc: 442 Interpretive Statements SINUS TACHYCARDIA No previous ECG available for comparison Electronically Signed On 06-16-2024 18:44:42 CDT by Mehul Kinney M.D. [email or web address] Glad[facility] Min[facility] [email or web address] [email or web address]/store/OV/[id number]
[2024-06-16] MEDS: metoprolol tartrate 1 mg/1 mL SDV 5 mL 5 MG IVP (00:43)
[2024-06-16 00:44] LABS: Basophils # 0.1 10^3/uL (0.0-0.1); Basophils % 0.7 %; Eosinophils # 0.6 10^3/uL (0.0-0.8); Eosinophils % 6.1 %; Hematocrit 36.1 % (36-47); Lymphocytes # 2.7 10^3/uL (0.8-4.8); Mean Corpuscular HGB Conc 30.5 g/dL (30-55); Mean Corpuscular Hemoglobin 22.3 pg (27-33); Mean Corpuscular Volume 73.1 fl (85-98); Mean Platelet Volume 8.7 fL (7.4-10.4); Monocytes # 0.8 10^3/uL (0.2-0.9); Monocytes % 7.3 %; Neutrophils # 6.07 10^3/uL (1.8-7.7); Neutrophils % 59.4 %; Nucleated Red Blood Cells % 0 %; Platelet Count 491 10^3/cmm (157-399); Red Blood Count 4.94 10^6/uL (3.85-5.65); Red Cell Distribution Width 18.8 % (12.1-15.1); White Blood Count 10.22 10^3/uL (3.29-11.43)
[2024-06-16] MEDS: sodium chloride 0.9% 1,000 ML 999 ML IV (00:48)
[2024-06-16 00:49] LABS: INR 1.06 (0.8-1.2)
[2024-06-16 00:50] LABS: Partial Thromboplastin Time 36.4 SECONDS (23.9-36.7)
[2024-06-16 00:58] LABS: Troponin(5th) Baseline < 6 ng/L (0-10)
[2024-06-16 01:00] LABS: HCG, Serum Qual Negative (Negative)
[2024-06-16 01:04] LABS: Alanine Aminotransferase 15 U/L (0-33); Albumin Level 4.4 g/dL (3.5-5.2); Alkaline Phosphatase 88 U/L (35-105); Anion Gap 14.7 (5-19); Aspartate Amino Transferase 17 U/L (0-32); Blood Urea Nitrogen 12 mg/dL (6-20); Calcium 9.2 mg/dL (8.5-10.5); Carbon Dioxide 24 mmol/L (22-29); Chloride 103 mmol/L (98-107); Creatine Phosphokinase 50 U/L (26-192); Creatinine Clr Calc Pharmacy 144.8771; Globulin 3.7 g/dL (1.3-4.6); Glucose 105 mg/dL (65-115); Magnesium 2.1 mg/dL (1.7-2.3); NT Pro B Type Natriuretic Pept < 36 pg/mL (0-125); Osmolality Calculated 286 mOsm/kg (285-295); Potassium 3.7 mmol/L (3.5-5.1); Sodium 138 mmol/L (136-145); Thyroid Stimulating Hormone 5.17 uIU/mL (0.27-4.20); Total Bilirubin 0.4 mg/dL (0.15-1.2); Total Protein 8.1 g/dL (6.6-8.7)
[2024-06-16 01:40] LABS: Covid PCR NEGATIVE (Negative); Influenza A NEGATIVE (Negative); Influenza B NEGATIVE (Negative); Respiratory Syncytial Virus Ce NEGATIVE (Negative)
[2024-06-16 02:30] LABS: Troponin 5 2HR 6.49 ng/L (0-10); Troponin 5 2HR Delta 0.49001 ABS# (0-10)
--- NOTE | 2024-06-16 03:33 | W.ED.ARRPALP ---
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 While she was doing this, she became diaphoretic, felt palpitations, nausea, and not well. She asked her friend to check her vital signs, and found her heart rate to be in the 130s. Increased to 160 when standing. She presents for evaluation. She is still tachycardic. Her symptoms of palpitations have mostly improved. She denies significant chest pain. She is not short of breath. Related Data Home Medications Medication Instructions Recorded Confirmed ferrous sulfate 324 mg (65 mg 324 mg PO BID 04/03/24 06/10/24 iron) tablet,delayed release dextroamphetamine-amphetamine ER 25 mg PO DAILY 06/10/24 06/10/24 20 mg 24hr capsule,extend release (Adderall XR) Previous Rx's Medication Instructions Recorded tizanidine 4 mg tablet 4 mg PO .qhs PRN muscle spasticity 11/09/23 #30 tabs medroxyprogesterone 10 mg tablet 10 mg PO QDAY #10 tabs 04/03/24 (Provera) albuterol sulfate 90 mcg/actuation 2 puff inhalation QID PRN 04/28/24 aerosol inhaler shortness of breath or wheezing #8.5 grams fexofenadine 180 mg tablet 180 mg PO DAILY #90 tabs 04/28/24 (Heather Allergy) montelukast 10 mg tablet 10 mg PO DAILY #90 tabs 04/28/24 (Singulair) metoprolol tartrate 25 mg tablet 25 mg PO BID #30 tabs 06/16/24 Allergies Allergy/AdvReac Type Severity Reaction Status Date / Time No Known Allergies Allergy Verified 06/10/24 12:00 [facility] ED PFSH: Medical History Abnormal Pap smear of cervix Left ovarian cyst Abnormal uterine bleeding (AUB) Allergies ADHD Surgical History No pertinent past surgical history Family History Grandmother Diabetes Hypertension Grandfather CAD (coronary artery disease) Denies family history of Cancer Social History Smoking and tobacco/nicotine status: never used tobacco/nicotine Alcohol intake: current Alcohol intake frequency: holidays/special occasions only Alcohol type: wine Substance/Drug Use: never Physical Exam Const: COMMON NORMALS: no acute distress GENERAL APPEARANCE: cooperative; not ill appearing and not frail appearing HENMT: COMMON NORMALS: normocephalic, atraumatic and Normal external nose present HEAD & SCALP: normocephalic and atraumatic FACE & SINUS: normal facial exam and face symmetric NOSE: Normal external nose present Eye: COMMON NORMALS: Equal, round and reactive pupils present and EOMs intact bilaterally PUPIL: Yes Equal, round and reactive pupils present Neck/C-Spine: GENERAL: Yes trachea midline Chest: CHEST: Yes Symmetrical chest wall rise Resp: COMMON NORMALS: normal respiratory effort, No retractions, No use of accessory muscles and clear to auscultation bilaterally AUSCULTATION: clear to auscultation bilaterally Cardio: COMMON NORMALS: regular rhythm RATE: tachycardic RHYTHM: regular rhythm GI: COMMON NORMALS: Normal to inspection, nondistended, normoactive bowel sounds present Extremity: COMMON NORMALS: no pedal edema Neuro: JOSE COMA SCALE: document GCS findings [place] coma scale eye opening: Spontaneous Jose coma scale verbal response: Orientated [place] coma scale motor response: Obey commands [place] coma scale total score: 15 SENSORY EXAM: Yes extremities (intact) Psych: COMMON NORMALS: speech normal SPEECH: Yes normal speech Skin: COMMON NORMALS: no rashes or lesions noted GENERAL SKIN EXAM: no rashes or lesions noted Course Vital Signs: Vital signs: Vital Signs Temperature 98.2 F 06/16/24 00:26 Pulse Rate 97 06/16/24 05:39 Respiratory Rate 18 06/16/24 05:39 Blood Pressure 128/73 06/16/24 05:39 Pulse Oximetry 98 06/16/24 05:39 Oxygen Delivery Me thod Room Air 06/16/24 02:00 MDM - Arrhythmia/Palpitations Medical Decision Making EKG shows sinus tachycardia without significant ST wave changes. She was given 5 mg of metoprolol, and 1 L of fluid with improvement in her heart rate. Second EKG shows a rate of 87. She did a few laps around the ER, with heart rate increasing to 130s, and then returning to below 100 with a normal rate. Laboratory workup including TSH, which is 5, is largely unremarkable. D-dimer is negative. Troponin is normal. Potassium and magnesium are normal. She has a history of anemia, but her hemoglobin is now 11 and improved from prior. Chest x-ray is nonacute. With improvement in her symptoms, she will be allowed discharge. She be given a prescription for rate control medication in the form of metoprolol to take as needed for increased heart rate. In the absence of other factors, tachycardia may be due to an increase in her Adderall from 20 to 25 mg, although this seems like a rather benign increase. She will call her doctor later today. She will take the day off. She will return for any return of her symptoms. Lab Data 06/16/24 00:30 06/16/24 00:30 Radiology Impressions Chest X-Ray 06/16/24 00:25 IMPRESSION: No acute findings. Laboratory Results WBC 10.22 10^3/uL (3.29-11.43) 06/16/24 00:30 RBC 4.94 10^6/uL (3.85-5.65) 06/16/24 00:30 Hgb 11.00 g/dL (11.27-16.99) L 06/16/24 00:30 Hct 36.1 % (36-47) 06/16/24 00:30 MCV 73.1 fl (85-98) L 06/16/24 00:30 MCH 22.3 pg (27-33) L 06/16/24 00:30 MCHC 30.5 g/dL (30-55) 06/16/24 00:30 RDW 18.8 % (12.1-15.1) H 06/16/24 00:30 Plt Count 491 10^3/cmm (157-399) H 06/16/24 00:30 MPV 8.7 fL (7.4-10.4) 06/16/24 00:30 Neut % (Auto) 59.4 % 06/16/24 00:30 Lymph % (Auto) 26.0 % 06/16/24 00:30 [place] % (Auto) 7.3 % 06/16/24 00:30 Eos % (Auto) 6.1 % 06/16/24 00:30 Baso % (Auto) 0.7 % 06/16/24 00:30 Neut # (Auto) 6.07 10^3/uL (1.8-7.7) 06/16/24 00:30 Lymph # (Auto) 2.7 10^3/uL (0.8-4.8) 06/16/24 00:30 [place] # (Auto) 0.8 10^3/uL (0.2-0.9) 06/16/24 00:30 Eos # (Auto) 0.6 10^3/uL (0.0-0.8) 06/16/24 00:30 Baso # (Auto) 0.1 10^3/uL (0.0-0.1) 06/16/24 00:30 Nucleated RBC % (auto) 0 % 06/16/24 00:30 Nucleated RBCs # 0.0 /100WBC 06/16/24 00:30 PT 14.10 SECONDS (12.1-14.9) 06/16/24 00:30 INR 1.06 (0.8-1.2) 06/16/24 00:30 APTT 36.4 SECONDS (23.9-36.7) 06/16/24 00:30 D-Dimer 0.34 ug/mLFEU (0-0.59) 06/16/24 00:30 Sodium 138 mmol/L (136-145) 06/16/24 00:30 Potassium 3.7 mmol/L (3.5-5.1) 06/16/24 00:30 Chloride 103 mmol/L (98-107) 06/16/24 00:30 Carbon Dioxide 24 mmol/L (22-29) 06/16/24 00:30 Anion Gap 14.7 (5-19) 06/16/24 00:30 BUN 12 mg/dL (6-20) 06/16/24 00:30 Creatinine 0.7 mg/dL (0.5-0.9) 06/16/24 00:30 GFR Calculation 102.0 mL/min (90-130) 06/16/24 00:30 Glucose 105 mg/dL (65-115) 06/16/24 00:30 Calculated Osmolality 286 mOsm/kg (285-295) 06/16/24 00:30 Calcium 9.2 mg/dL (8.5-10.5) 06/16/24 00:30 Magnesium 2.1 mg/dL (1.7-2.3) 06/16/24 00:30 Total Bilirubin 0.4 mg/dL (0.15-1.2) 06/16/24 00:30 AST 17 U/L (0-32) 06/16/24 00:30 ALT 15 U/L (0-33) 06/16/24 00:30 Alkaline Phosphatase 88 U/L (35-105) 06/16/24 00:30 Creatine Kinase 50 U/L (26-192) 06/16/24 00:30 Troponin T Baseline < 6 ng/L (0-10) 06/16/24 00:30 Troponin T 120 Minute 6.49 ng/L (0-10) 06/16/24 02:11 Delta Troponin T 0.79859 ABS# (0-10) 06/16/24 02:11 NT-Pro-B Natriuret Pep < 36 pg/mL (0-125) 06/16/24 00:30 Total Protein 8.1 g/dL (6.6-8.7) 06/16/24 00:30 Albumin 4.4 g/dL (3.5-5.2) 06/16/24 00:30 Globulin 3.7 g/dL (1.3-4.6) 06/16/24 00:30 TSH 5.17 uIU/mL (0.27-4.20) H 06/16/24 00:30 HCG, Qual Negative (Negative) 06/16/24 00:30 Coronavirus (PCR) Negative (Negative) 06/16/24 00:37 Influenza A (PCR) Negative (Negative) 06/16/24 00:37 Influenza Type B (PCR) Negative (Negative) 06/16/24 00:37 RSV (PCR) Negative (Negative) 06/16/24 00:37 All radiology interpretation(s) finalized by discharge Discharge Plan Discharge Patient Disposition: Home Clinical Impression: Sinus tachycardia Condition: Stable Prescriptions: New metoprolol tartrate 25 mg tablet 25 mg PO BID Qty: 30 0RF No Action povidone-iodine [Betadine Swabsticks] 10 % swab 1 applic topical ONCE Qty: 1 0RF ferrous sulfate 324 mg (65 mg iron) tablet,delayed release (DR/EC) 324 mg PO BID medroxyprogesterone [Provera] 10 mg tablet 10 mg PO QDAY Qty: 10 0RF dextroamphetamine-amphetamine [Adderall XR] 20 mg capsule,extended release 24hr 25 mg PO DAILY montelukast [Singulair] 10 mg tablet 10 mg PO DAILY Qty: 90 1RF fexofenadine [Heather Allergy] 180 mg tablet 180 mg PO DAILY Qty: 90 3RF albuterol sulfate 90 mcg/actuation HFA aerosol inhaler 2 puff inhalation QID PRN (Reason: shortness of breath or wheezing) Qty: 8.5 2RF tizanidine 4 mg tablet 4 mg PO .qhs PRN (Reason: muscle spasticity) Qty: 30 1RF Discharge Orders: Discharge ED (Routine); Ordered 06/16/24 Ordered By: Koko Blount Referrals: Zoran Hearn MD [Primary Care Provider] - 4-7 days Patient Instructions: Tachycardia (ED), Opioid Safety, Pain Management Activity Restrictions/Additional Instructions: If you are sustaining heart rates over 100, consider taking a metoprolol up to twice a day. Hydrate aggressively for the next 24 hours. Do not use caffeine. Call your doctor later this morning, and let them know you were seen here with tachycardia. They may wish to change your Adderall dose, or perform other tests. Return to the ER for development of any chest pain, inability to control heart rate, fever, any other concerning symptoms. Stand Alone Forms: Work/School Release Coding Level of Care Code ED Cleaner Window for Padmini Cantu
--- NOTE | 2024-06-16 03:57 | ECG_ITS ---
[facility] Test Date: 2024-06-16 Pat Name: Criss Ann Department: Room: Gender: Female Director Private Music Therapy Agency: : 2000 Requested By: Koko Anaya Order Number: [id number] Nelson MD: Mehul Kinney M.D. Measurements Intervals [place] Rate: 87 P: 65 DE: 182 QRS: 46 QRSD: 77 T: 36 QT: 364 QTc: 439 Interpretive Statements SINUS RHYTHM Compared to ECG 06/16/2024 00:15:37 Sinus tachycardia no longer present Electronically Signed On 06-16-2024 18:55:40 CDT by Mehul Kinney M.D. [email or web address] medical centerNovel Ingredient Serviceswhite [email or web address]/store/OM/[id number]
[2024-06-16 04:00] LABS: D Dimer 0.34 ug/mLFEU (0-0.59)
== END 2024-06-16 04:18 | disposition home or self-care (01) ==
PROVIDERS: Emergency Provider Emergency Medicine; PCP Family Medicine
DX: R00.0 Tachycardia, unspecified (principal); Z79.899 Other long term (current) drug therapy
CPT/HCPCS: 0241U; 36415; 71045; 80053; 82550; 83735; 83880; 84443; 84484; 84703; 85025; 85378; 85610; 85730; 93005; 96361; 96374; 99285; J3490; J7030

== ENCOUNTER 2024-06-16 15:30 | Oncology outpatient (recurring) (ONCR) | payer OTHER, SELFPAY ==
[2024-06-11 15:42] VITALS: BP 111/78; PULSE 117; RESP 18; TEMP 36.6; O2SAT 97
[2024-06-11] MEDS: iron sucrose 200 MG in sodium chloride 0.9% (100 ml) 100 ML 220 MG IV (15:56)
[2024-06-11] MEDS: sodium chloride 0.9% 250 ML 75 ML IV (15:56)
[2024-06-11 17:07] VITALS: BP 109/68; PULSE 100; RESP 18; TEMP 36.6; O2SAT 99
[2024-06-16 15:35] VITALS: BP 122/79; PULSE 97; RESP 16; TEMP 36.4; O2SAT 98
[2024-06-16] MEDS: iron sucrose 200 MG in sodium chloride 0.9% (100 ml) 100 ML 220 MG IV (15:54)
[2024-06-16 16:20] VITALS: BP 111/78; PULSE 100; RESP 16; TEMP 36.2; O2SAT 96
== END 2024-06-16 23:59 | disposition home or self-care (01) ==
PROVIDERS: PCP Family Medicine; Visit Provider Family Medicine
DX: D50.9 Iron deficiency anemia, unspecified (principal); Z79.899 Other long term (current) drug therapy; Z53.9 Procedure and treatment not carried out, unspecified reason
CPT/HCPCS: 96365; J1756; J7050

== ENCOUNTER 2024-06-23 15:19 | Oncology outpatient (recurring) (ONCR) | payer OTHER, SELFPAY ==
[2024-06-18 15:59] VITALS: BP 121/62; PULSE 111; RESP 16; TEMP 36.6; O2SAT 98
[2024-06-18] MEDS: iron sucrose 200 MG in sodium chloride 0.9% (100 ml) 100 ML 220 MG IV (16:00)
[2024-06-18 16:35] VITALS: BP 116/78; PULSE 96; RESP 16; TEMP 36.9; O2SAT 94
[2024-06-20] MEDS: iron sucrose 200 MG in sodium chloride 0.9% (100 ml) 100 ML 220 MG IV (08:18)
[2024-06-20 08:49] VITALS: BP 115/75; PULSE 91; RESP 16; TEMP 36.3; O2SAT 99
[2024-06-23] MEDS: iron sucrose 200 MG in sodium chloride 0.9% (100 ml) 100 ML 220 MG IV (15:38)
[2024-06-23 15:40] VITALS: BP 123/86; PULSE 100; RESP 16; TEMP 36.8; O2SAT 99
[2024-06-23 16:07] VITALS: BP 122/84; PULSE 99; TEMP 36.7; O2SAT 98
== END 2024-07-17 23:59 | disposition home or self-care (01) ==
PROVIDERS: PCP Family Medicine; Visit Provider Family Medicine
DX: D50.9 Iron deficiency anemia, unspecified (principal); Z79.899 Other long term (current) drug therapy; Z53.9 Procedure and treatment not carried out, unspecified reason
CPT/HCPCS: 96365; J1756

== ENCOUNTER 2024-07-17 05:47 | Day surgery (SDC) | payer OTHER, SELFPAY ==
[2024-07-17] VITALS (14 sets, daily range): BP systolic 90–138; BP diastolic 59–87; PULSE 72–95; RESP 10–23; TEMP 36.1–36.4; O2SAT 93–100; BMI 31.9
--- NOTE | 2024-07-17 02:18 | W.PM.OPSFHP ---
Same Day Surgery H&P Indication for Procedure/HPI DATE OF PROCEDURE: July 17, 2024 CHIEF COMPLAINT/INDICATIONFOR SURGICAL PROCEDURE: left ovarian cyst PREOP DIAGNOSIS: left ovarian cyst PLANNED PROCEDURE: Operation Date: 07/17/24 07:00 Proposed Procedures p Laparoscopic Ovarian Cystectomy 60640, 26510, N83.202(Left) - Jamil Chen MD s Laparoscopic Salpingo Oophorectomy (possible)(Left) - Jamil Chen MD 24 y.o. with persistent 8-9 cm left ovarian cyst now scheduled for laparoscopic cystectomy, possible oophorectomy Medications/Allergies* Home Medications Medication Instructions Recorded Confirmed Type ferrous sulfate 324 mg (65 mg 324 mg PO DAILY 04/03/24 07/16/24 History iron) tablet,delayed release dextroamphetamine-amphetamine ER 25 mg PO DAILY 06/10/24 07/16/24 History 20 mg 24hr capsule,extend release (Adderall XR) medroxyprogesterone 10 mg tablet 10 mg PO QDAY PRN Bleeding 07/16/24 07/16/24 History (Provera) metoprolol tartrate 25 mg tablet 25 mg PO BID PRN heart rate 07/16/24 07/16/24 History Allergies/Adverse Reactions Allergy/AdvReac Type Severity Reaction Status Date / Time No Known Allergies Allergy Verified 07/16/24 15:44 Pertinent History/Comorbid Conditions* Medical History (Updated 06/24/24 @ 00:00 by RADHA Martini) Abnormal Pap smear of cervix Left ovarian cyst Abnormal uterine bleeding (AUB) Allergies ADHD Surgical History (Updated 04/20/23 @ 12:33 by Shilpa Garcia DO) No pertinent past surgical history Family History (Updated 05/16/23 @ 14:46 by Shilpa Olguin APN, WHMAJO) Diabetes Grandmother CAD (coronary artery disease) Grandfather Hypertension Grandmother Denies family history of Cancer Social History Smoking and tobacco/nicotine status: never used tobacco/nicotine Alcohol intake: current Alcohol intake frequency: holidays/special occasions only Alcohol type: wine Substance/Drug Use: never Pertinent Exam Findings alert, oriented x 3, clear to auscultation bilaterally and regular rate & rhythm Recommendations Surgery/Procedure today Coding Level of Care Code Acute Code for Chg Fwd Time Spent (min) 20
--- NOTE | 2024-07-17 06:03 | P.ANESASSM_ITS ---
Pre-Anesthetic Assessment Height/Weight: Height 5 ft 7 in Preop Diagnosis: left ovarian cyst Operation Date: 07/17/24 07:00 Proposed Procedures p Laparoscopic Ovarian Cystectomy 41611, 96042, N83.202(Left) - Jamil Chen MD s Laparoscopic Salpingo Oophorectomy (possible)(Left) - Jamil Chen MD Was Beta Geovani taken within 24 hours: Yes Was Clonidine taken within 24 hours: N/A Social No alcohol and No tobacco Exam alert, oriented x 3, clear to auscultation bilaterally and regular rate & rhythm Airway Submandibular: within normal limits Cervical ROM: within normal limits Mallampati: Class I Dentition: full Anesthetic Plan ASA status: 2 Anesthesia: General Other: No prior issues with anesthesia NPO since yesterday evening History of ADHD on Adderall History of tachycardia. Metoprolol as needed. Patient took it yesterday Asthma, occasional inhaler use Labs 06/16/2024 reviewed acceptable for procedure METs greater than 4 Plan for general anesthetic Medications/Allergies Home Medications Medication Instructions Recorded Confirmed Last Taken Type tizanidine 4 mg tablet 4 mg PO .qhs PRN muscle spasticity 11/09/23 07/16/24 Unknown Rx #30 tabs ferrous sulfate 324 mg (65 mg 324 mg PO DAILY 04/03/24 07/16/24 07/14/24 History iron) tablet,delayed release fexofenadine 180 mg tablet 180 mg PO DAILY #90 tabs 04/28/24 07/16/24 07/15/24 20:30 Rx ([facility]) dextroamphetamine-amphetamine ER 25 mg PO DAILY 06/10/24 07/16/24 07/15/24 20:00 History 20 mg 24hr capsule,extend release (Adderall XR) albuterol sulfate 90 mcg/actuation 2 puff inhalation QID PRN 07/16/24 07/17/24 07/16/24 Rx aerosol inhaler shortness of breath or wheezing #8.5 grams fluticasone propionate 50 1 spray intranasal BID #16 grams 07/16/24 07/17/24 07/16/24 Rx mcg/actuation nasal spray,suspension medroxyprogesterone 10 mg tablet 10 mg PO QDAY PRN Bleeding 07/16/24 07/16/24 Unknown History (Provera) metoprolol tartrate 25 mg tablet 25 mg PO BID PRN heart rate 07/16/24 07/17/24 07/16/24 History montelukast 10 mg tablet 10 mg PO DAILY #90 tabs 07/16/24 07/17/24 Unknown Rx (Singulair) prednisone 20 mg tablet 20 mg PO BID 5 days #10 tabs 07/16/24 07/16/24 Unknown Rx Allergies Allergy/AdvReac Type Severity Reaction Status Date / Time No Known Allergies Allergy Verified 07/17/24 06:10 [facility] Anesthesia Medical History Abnormal Pap smear of cervix Left ovarian cyst Abnormal uterine bleeding (AUB) Allergies ADHD Surgical History No pertinent past surgical history Family History Grandmother Diabetes Hypertension Grandfather CAD (coronary artery disease) Denies family history of Cancer Social History Smoking and tobacco/nicotine status: never used tobacco/nicotine Alcohol intake: current Alcohol intake frequency: holidays/special occasions only Alcohol type: wine Substance/Drug Use: never Data Anesthesia Cardiac Studies: No Data to Display
--- NOTE | 2024-07-17 06:42 | W.PM.OPSUD ---
Surgery/Procedure H&P Update DATE OF PROCEDURE: July 17, 2024 DATE H&P PERFORMED: 07/16/24 H&P UPDATE INFORMATION: I have reviewed H&P completed within last 30 days, I have examined patient prior to procedure and No changes to prior documentation PREOP DIAGNOSIS: left ovarian cyst PRIMARY INDICATION FOR PROCEDURE: left ovarian cyst PLANNED PROCEDURE: Operation Date: 07/17/24 07:00 Proposed Procedures p Laparoscopic Ovarian Cystectomy 24934, 24727, N83.202(Left) - Jamil Chen MD s Laparoscopic Salpingo Oophorectomy (possible)(Left) - Jamil Chen MD
[2024-07-17] MEDS: sodium chloride 0.9% 1,000 ML 30 ML IV (06:45)
--- NOTE | 2024-07-17 06:51 | W.PM.OPSUD ---
Surgery/Procedure H&P Update DATE OF PROCEDURE: July 17, 2024 DATE H&P PERFORMED: 07/16/24 CHANGES TO PREVIOUS DOCUMENTATION: patient with cervical ROBERTO I. Wants LEEP cervical excision. Procedure and risks discussed with patient. Risks include, but not limited to, infection, bleeding, injury to internal organs, blood transfusion. patient understands and wants to proceed. PREOP DIAGNOSIS: left ovarian cyst PRIMARY INDICATION FOR PROCEDURE: cervical ROBERTO I left ovarian cyst PLANNED PROCEDURE: Operation Date: 07/17/24 07:00 Proposed Procedures p Laparoscopic Ovarian Cystectomy 04306, 29161, N83.202(Left) - Jamil Chen MD s Laparoscopic Salpingo Oophorectomy (possible)(Left) - Jamil Chen MD Electrosurgical loop excision of the cervix - Jamil Chen MD
[2024-07-17] MEDS: vasopressin 20 unit/mL INJ 10 UNIT INJECTION (09:15)
--- NOTE | 2024-07-17 09:55 | P.OP_ITS ---
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 Cervical ROBERTO I Post-op findings: Normal uterus Presence of a 9 cm left ovarian teratoma involving the entire left ovary and tube Normal right ovary and tube Otherwise normal pelvis Procedure done: Laparoscopy Laparoscopic left salpingo-oophorectomy Electrosurgical loop excision of cervix Implants: none Specimens removed/disposition: left ovary and tube cervical tissue Surgeon: Jamil Cehn MD Anesthesia: General Estimated blood loss (mL): 5 Complications: none Findings: Normal uterus Presence of a 9 cm left ovarian teratoma involving the entire left ovary and tube Normal right ovary and tube Otherwise normal pelvis Condition: stable Disposition: PACU Brief History: 24 y.o. with 8-9 cm left ovarian cyst and persistent cervical ROBERTO I Procedure: Informed consent obtained. The patient was taken to the OR and placed supine on the table. General endotracheal anesthesia was given. The patient was then placed in dorsolithotomy position. The abdomen and perineum were prepped and draped in usual fashion. A sorto catheter was placed. A 5 mm subumbilical skin incision was made. A laparoscopic trocar with sheath was inserted into the peritoneal cavity under direct vision with the laparoscope. Pneumoperitoneum was achieved. Two separate 5 mm incisions were made in the right and left mid- abdominal quadrants under direct visualization to accommodate additional trocars and sheaths. The pelvis was explored with the laparoscope. Normal uterus, right ovary and tube were seen. No abnormalities were seen in the utero-ovarian ligaments, broad ligaments, anterior cul-de-sac and pelvic side-yanez. The left adnexa was seen to be occupied by a 9 cm cyst involving the entire left ovary. Left fallopian tube was seen to be plastered against the cyst with no discernible fimbria. A small opening into the left adnexal cyst using the ligasure device showed hair structures c/w a teratoma. The Ligasure device was then used to excise the left ovary and tube, avoiding the ureter and other pelvic structures. The subumbilical skin incision was extended to 10 mm using a scalpel to accommodate a 10 mm trocar. An endopouch was used to remove the ovary and tube from the abdominal cavity. This was sent to pathology. No bleeding was seen The liver edge was visualized and was normal. The remainder of the pelvis was again examined and seen to be normal. All instruments were then removed from the abdominal cavity after the pneumoperitoneum was allowed to escape. The subumbilical fascia was closed with a stitch of O-Vicryl The skin incisions were closed with 4-O monocryl. Dermabond was applied. The sorto catheter was removed. A bivalve speculum was placed in the vagina. The anterior lip of the cervix was grasped with a single toothed tenaculum. The cervix was then infiltrated at the cervicovaginal junction with 20 U of vasopressin to decrease bleeding. Electrosurgical loop excision of the cervix was done to a depth of approximately 5 mm. Excellent hemostasis was noted. All instruments were then removed. The patient was placed supine, awakened, and taken to the recovery room. Postop condition stable. EBL 5 cc. There were no complications. Sponge and instrument counts were correct x two
[2024-07-17] MEDS: fentaNYL 50 mcg/mL INJ 2mL IVP ×2 (09:59→10:04)
[2024-07-17] MEDS: oxyCODONE-APAP 5-325 mg Tablet 1 TAB PO (11:09)
--- NOTE | 2024-07-17 13:02 | ANE.PACU2 ---
Inpatient post-anesthesia follow up: Airway intact: Yes Vital signs: Temperature 97 F Pulse Rate 74 Respiratory Rate 18 Blood Pressure 115/71 Pulse Oximetry 96 Oxygen Delivery Me thod Room Air Oxygen Flow Rate 2 Fraction of Inspir ed Oxygen Hydration adequate: Yes Nausea and vomiting: No Pain level: 1 Mental status: Baseline
== END 2024-07-17 13:03 | disposition home or self-care (01) ==
PROVIDERS: PCP Family Medicine; Visit Provider Obstetrics & Gynecology
PROC: (CPT 58662; principal; 2024-07-17 07:00)
PROC: (CPT 58661; 2024-07-17 07:00)
PROC: 0UBC7ZZ Excision of Cervix, Via Natural or Artificial Opening (ICD-10-PCS; CPT 57522; 2024-07-17 07:00)
DX: N87.0 Mild cervical dysplasia (principal); D27.1 Benign neoplasm of left ovary; F90.9 Attention-deficit hyperactivity disorder, unspecified type; J45.909 Unspecified asthma, uncomplicated
CPT/HCPCS: 57460; 58661; 51702; 88304; 88305; A4216; J1100; J1171; J1200; J1885; J2250; J2405; J2704; J2710; J3010; J3490; J7030

== ENCOUNTER → 2024-08-20 08:41 | Outpatient (BNVA) | payer OTHER, SELFPAY | PROVIDERS: PCP Family Medicine; Visit Provider Nurse Practitioner Women's Health | DX: N39.0 Urinary tract infection, site not specified (principal); R30.0 Dysuria | CPT/HCPCS: 81000; 87086 ==

== ENCOUNTER → 2025-07-15 13:45 | Outpatient (BNVA) | payer SELFPAY | PROVIDERS: PCP Family Medicine; Visit Provider Family Medicine | DX: R00.0 Tachycardia, unspecified (principal); Z86.39 Personal history of other endocrine, nutritional and metabolic disease | CPT/HCPCS: 80053; 82306; 82607; 82728; 83550; 84439; 84443; 85025; 86376 ==

== ENCOUNTER 2025-07-31 16:24 | Outpatient (CLI) | payer SELFPAY ==
--- NOTE | 2025-07-31 16:30 | US_ITS ---
WS: [id number] ULTRASOUND SOFT TISSUES RIGHT cervical chain. HISTORY: enlarged lymph node posterior cervical chain RIGHT COMPARISON: None available. TECHNIQUE: 2-D and color Doppler imaging is submitted. Ultrasound is directed along the RIGHT cervical chain at the palpable abnormality site. This palpable nodule is a benign-appearing lymph node measuring 1.2 x 1.8 x 0.5 cm. No increased vascularity. US/US soft tissue head neck 42147 IMPRESSION: Normal RIGHT cervical chain lymph node corresponds to the palpable abnormality.
== END 2025-07-31 16:25 | disposition home or self-care (01) ==
LOC: RAD 16:28
PROVIDERS: PCP Family Medicine; Visit Provider Family Medicine
DX: R59.1 Generalized enlarged lymph nodes (principal); D36.0 Benign neoplasm of lymph nodes
CPT/HCPCS: 76536